=== PATIENT | male | born 1970 | race Caucasian/White ===

== ENCOUNTER 2024-10-05 23:50 | Inpatient (IN) | payer BC, SELFPAY ==
[2024-10-05] VITALS (7 sets, daily range): BP systolic 114–148; BP diastolic 60–93; BMI 27.8
[2024-10-05 21:11] LABS: Hematocrit 48.2 % (39.0-52.0); Hemoglobin 15.2 g/dL (13.0-18.0); Mean Corp Hgb Conc. 31.5 g/dL (33.0-37.0); Mean Corpuscular Volume 97.8 fL (80.0-94.0); Nucleated Red Blood Cells % 0 % (-); Platelet Count 303 10^3/uL (130-400); Red Cell Dist. Width 11.7 % (11.5-14.5)
[2024-10-05 21:42] LABS: AST (SGOT) 32 U/L (17-59); Albumin 5.7 g/dl (3.5-5.0); Alkaline Phosphatase 118 U/L (38-126); Blood Urea Nitrogen 12 mg/dl (9-20); Calcium 9.8 mg/dl (8.4-10.2); Carbon Dioxide 9 mmol/L (22-30); Chloride 103 mmol/L (98-107); Estimated Creatinine Clearance 62 ml/min; Glucose 146 mg/dl (70-99); Potassium 4.3 mmol/L (3.5-5.1); Sodium 144 mmol/L (135-145); Total Protein 9.2 g/dl (6.3-8.2); eGFR > 60.00
[2024-10-05 21:54] LABS: ALT (SGPT) 38 U/L (0-50)
--- NOTE | 2024-10-05 22:20 | ED.GENMED ---
Addendum entered and electronically signed by Jose Moffett DO 10/05/24 23:09:
Patient had repeat seizure while awaiting a ride. Versed given. CT head no acute findings. CT cervical spine no acute finding, but await vision read. Admit patient to hospitalist for further monitoring.
Original Note:
History of Present Illness
General
Chief Complaint: Seizure
Source: patient and family
Exam Limitations: none
Time Seen by Provider: 10/05/24 21:43
Nursing documentation reviewed up to this point in time: agreed with
History of Present Illness
History of Present Illness:
Note:
CHIEF COMPLAINT(S)
[place] lightheaded and potentially experienced a breakthrough seizure.
HISTORY OF PRESENT ILLNESS
The patient is a 54-year-old male with a history of seizures, followed by a neurologist located in [place], [place]. The patient reported feeling lightheaded while traveling from the airport on a train after returning from [place],
where he was accompanying his daughter for school. During the train journey to [place], the patient began to feel 'it coming on' and subsequently missed his stop, potentially due to an altered level of consciousness or falling asleep. The
patient reported no pain but acknowledged having bitten his tongue, though it was not severe.
The patient denies missing any doses of his anti-seizure medication, levetiracetam, during this trip. There is no reported seizure activity for an unspecified duration prior to this incident. However, the patient believes that the travel or change
in routine may have contributed to this episode. The patient was aware of his location after the incident and expressed no current distress or additional symptoms. He was advised to follow up with his neurologist for further evaluation and
management.
PHYSICAL EXAM
General: Alert, no acute distress.
Skin: Warm, dry.
Head: Normocephalic, atraumatic.
Neck: Supple, trachea midline.
Eyes, Ears, Nose, Mouth and Throat: Oral mucosa moist, tongue bitten but not severely.
Cardiovascular: Normal peripheral perfusion, No edema.
Respiratory: Respirations are non-labored.
Gastrointestinal: Abdomen nondistended.
Back: Normal range of motion, Normal alignment.
Musculoskeletal: Normal range of motion, normal strength.
Neurological: Alert and oriented to person, place, time, and situation, No focal neurological deficit observed.
Psychiatric: Cooperative, appropriate mood & affect.
PLAN
The patient will be kept on monitors during the remainder of his stay in the emergency department. He is encouraged to contact a family member or friend to arrange for transportation home. He is advised to follow up with his neurologist to address
this potential breakthrough seizure and discuss any necessary adjustments to his medication regimen or lifestyle to prevent future episodes.
DIFFERENTIAL DIAGNOSIS
The Differential Diagnosis includes, in no particular order and is not limited to:
1. Breakthrough seizure
2. Syncope
3. Hypoglycemia
4. Medication non-compliance or interaction
5. Sleep deprivation
6. Electrolyte imbalance
7. Infection or fever
8. Acute stress response
9. Cardiovascular event
10. Neurological disorder recurrence or progression
CARE-UPDATE
10/05/24 - 22:24
Patient experienced a generalized seizure but showed no signs of head trauma. He has a small tongue laceration that does not require repair or suturing. Notified DMV and completed the necessary forms regarding driving restrictions. The patient has
mild acidosis resulting from the seizure but is tolerating oral fluids well. He continues to follow up with his neurologist.
EKG
My independent EKG interpretation is:
- Rhythm: Normal sinus rhythm
- Notable Abnormality: T-wave abnormality
- Additional Finding: Signs of ischemia
- QRS Duration: Normal
Disposition:
SUMMARY OF ENCOUNTER
The patient, a 54-year-old male with a known history of seizures, was evaluated in the emergency department after experiencing lightheadedness during a train journey, raising concern for a breakthrough seizure. The patient reported no pain but did
have a minor tongue bite. He was traveling from [place] and feared that the change in routine might have contributed to the episode. The physical examination revealed no acute signs of distress, with no observed focal neurological deficits.
The patient tolerated oral fluids well, and the minor tongue laceration did not require suturing. Based on the examination and EKG findings, which showed normal sinus rhythm with T-wave abnormality and signs of ischemia, the patient was encouraged
to follow up with his neurologist for potential changes to his current management plan with levetiracetam.
DISPOSITION
Discharge.
ASSESSMENT
The primary concern in this visit is the recurrence of seizures, potentially a breakthrough seizure due to changes in routine or stress factors related to travel.
PLAN
The patient will be kept on monitors for the remainder of his emergency department stay and encouraged to arrange transportation home with a family member or friend. He is instructed to have a follow-up appointment with his neurologist to address
this possible breakthrough seizure and discuss any necessary adjustments in medication or lifestyle to prevent future episodes.
INDEPENDENT REVIEW OF LABS AND INTERPRETATION OF TESTS
My independent EKG interpretation: Rhythm: Normal sinus rhythm; Notable Abnormality: T-wave abnormality; Additional Finding: Signs of ischemia; QRS Duration: Normal.
PATIENT EDUCATION AND COUNSELING
The patient was counseled on the importance of adherence to his medication regimen and the potential triggers for seizures, including stress and changes in routine. He was advised to ensure regular follow-ups with his neurologist to reassess and
adjust his treatment plan as needed.
FOLLOW-UP INSTRUCTIONS
Please contact your neurologist to schedule a follow-up visit immediately.
MEDICATION RECONCILIATION
The patient is currently on levetiracetam for seizure management. No new medications were prescribed or administered during the visit.
MEDICAL DECISION MAKING
- Number and Complexity of Problems Addressed: Chronic conditions affecting care include seizures. Differential diagnosis considered includes breakthrough seizure, syncope, hypoglycemia, medication non-compliance or interaction, sleep deprivation,
electrolyte imbalance, infection or fever, acute stress response, cardiovascular event, and neurological disorder recurrence or progression.
- Data:
Category 1: Lab tests and EKG reviewed.
Category 2: None.
Category 3: None.
- Risk: Prescription medication management was not changed during the visit; however, potential recommendations for adjustment in therapy will be discussed with the neurologist.
DIAGNOSIS
- Breakthrough seizure, ICD-10 Code: G40.909
Please note that the patients full medical history and current medication regimen should be reviewed with the neurologist for comprehensive management moving forward.
Phy Exam
Physical Exam
Physical Exam:
.
Course
Orders/Labs/Results
Orders:
Orders
10/05/24 20:59
Electrocardiogram (*1) Urgent
Reason for Study: Tachycardia
EKG- Treatment ONCE
10/05/24 21:01
Complete Blood Count/With Diff Urgent
Comprehensive Metabolic Panel Urgent
Lamictal [Lamotrigine (Lamictal)] [S] Urgent
Abnormal Lab Results
10/05/24
21:01
MCV 97.8 H fL
(80.0-94.0)
MCHC 31.5 L g/dL
(33.0-37.0)
Abs Immat Gran (auto) 0.1 H 10^3/uL
(0-0.05)
Absolute Lymphs (auto) 3.5 H 10^3/uL
(1.2-3.4)
Immature Gran % 1.0 H %
(0-0.5)
Carbon Dioxide 9 L* mmol/L
(22-30)
Creatinine 1.4 H mg/dL
(0.7-1.3)
Glucose 146 H mg/dl
(70-99)
Total Protein 9.2 H g/dl
(6.3-8.2)
Albumin 5.7 H g/dl
(3.5-5.0)
10/05/24 21:01
10/05/24 21:01
Vital Signs
Initial and Last Documented VS:
Initial Vital Signs
Temp Pulse Resp BP Pulse Ox
98.2 F 100 12 148/86 97
10/05/24 20:00 10/05/24 20:00 10/05/24 20:00 10/05/24 20:00 10/05/24 20:00
Last Documented Vital Signs
Temp Pulse Resp BP Pulse Ox
98.2 F 84 19 146/93 100
10/05/24 20:00 10/05/24 21:45 10/05/24 21:15 10/05/24 21:00 10/05/24 21:45
*Pulse Oximetry
SaO2: 100
Oxygen Mode of Delivery: Room air
Patient hypoxic: no
*Critical Care Note
Total Time (30-74mins, 75-104mins- exclusive of procedures): Not Applicable
ED Attending Note
-
Portions of this chart may have been created with voice recognition software.� Occasional wrong word or��sound alike� substitutions may have occurred due to the inherent limitations of voice recognition software.
Discharge Plan
Departure
Patient Disposition: Home (Routine Discharge)
Date of Disposition: 10/05/24
Time of Disposition: 22:27
Patient with high blood pressure during this ER visit?: Yes
Condition: Good
Discharge Problem:
Breakthrough seizure
Instructions: Seizures, Adult (DC), BLOOD PRESSURE
Referrals:
NONE,* [Family Provider, Internal Medicine]
Activity Restrictions/Additional Instructions:
Follow-up with your neurologist do not drive until cleared by neurology.
Interventions
Interventions:
*Risk Screen - Suicide Last Done: 10/05/24 20:00
*General Assessment Last Done: 10/05/24 20:00
*Neglect/Abuse Screening Last Done: 10/05/24 20:00
*ED- Fall Risk Assessment Last Done: 10/05/24 20:00
*ED COVID-19 Vaccine History Last Done: 10/05/24 20:00
ED- Cardiac Assessment Last Done: 10/05/24 20:00
ED- Neurological Assessment Last Done: 10/05/24 20:00
ED- Pulmonary Assessment Last Done: 10/05/24 20:00
Discharge Date and Time
Print Language: PASHTO
[2024-10-05] MEDS: VERSED 2 MG IV (22:46)
--- NOTE | 2024-10-05 23:10 | PTCARENOTE ---
Patient was cleared medically and discharged by provider. This RN removed IV and patient was waiting for a ride home. This RN was giving report to receiving RN when we heard a loud noise and ran into the room to find the patient on the ground next
to the stretcher seizing. The other RN quickly notified provider and other RNs to come assist. A [address] in RAC and medication was administered (see MAR). Patient was transported to CT scan by this RN, another RN, and provider.
[2024-10-05] MEDS: KEPPRA 1000 MG IV (23:25)
--- NOTE | 2024-10-05 23:27 | HPS.HSE ---
Family Physician
-
Family Physician: * NONE
Chief Complaint
-
Seizure
History of Present Illness
54-year-old male who was on the train today coming back from [place] while getting off the train had a witnessed seizure. He was brought to ER for evaluation. Patient typically lives in [facility]. He reports he has had seizures since his 20s unsure of the cause. He reports he is compliant with his Lamictal. He was seen in the ER and during discharge he states he had prodrome of lightheadedness that he gets
before having a seizure he had lightheadedness then was found on the floor in the room. He denies cervical thoracic or lumbar pain there is no active head injury he denies headache, fever, chills, chest pain, palpitations, cough, shortness of
breath, abdominal pain, nausea, vomiting, diarrhea, urinary symptoms. During his active seizure he was given Versed intravenous. He had CT head and cervical spine that was negative. Patient has past medical history of seizure disorder since age 22
Medical History
Past Medical History
Past Medical History: Reports Other
Additional Past Medical History:
Seizures since age 22
Past Surgical History: Reports None
Social History
Tobacco: Non-smoker
Alcohol: Occasional (Drinks alcohol once a week)
Drug: Marijuana (1-2 times a week smokes)
Personal: Other (Girlfriend Jennifer)
Living: With Family (Girlfriend Jennifer)
Employment: Employed
Family History
Family History: Other (No family history of seizures, brain injuries, strokes)
Allergies / Home Medications
Allergies reflects when Allergies were last updated in [facility].
Home Medications with original date entered in [facility]
Allergy/Medication List:
Allergies
Allergy/AdvReac Type Severity Reaction Status Date / Time
No Known Allergies Allergy Verified 10/05/24 20:18
Home Medications
Lamictal 200 mg PO TID 10/05/24
Review of Systems
-
History Source: Patient
A 12 point ROS was completed and negative except as noted: Yes
Constitutional: Denies Fever or Chills
EENT: Denies Sore Throat or Runny Nose
Respiratory: Denies Cough or Trouble Breathing
Cardiac: Denies Chest Pain, Palpitations or Syncope
Abdomen/GI: Denies Abdominal Pain, Nausea, Vomiting, Diarrhea, Constipated or Bloody Stools
: Denies Dysuria, Frequency, Flank Pain, Incontinence, Difficulty Voiding, Urgency or Bleeding
Musculoskeletal: Denies Joint Pain or Edema
Skin: Denies Itching or Rash
Neurological: Denies Dizzy, Headache or Weakness
Hematologic/Lymphatic: Reports No Symptoms
Psych: Reports Calm
Physical Exam
Vital Signs
Vital Signs
Temp Pulse Resp BP Pulse Ox
98.2 F 84 19 146/93 100
10/05/24 20:00 10/05/24 21:45 10/05/24 21:15 10/05/24 21:00 10/05/24 22:21
Physical Exam
General: Conversant; No Fever, Chills or Sweats
HEENT: NormoCephalic, Anicteric, Moist mucous membranes, Atraumatic, PERRLA, Taylor Conjunctivae, No Ptosis and Other (Negative cervical thoracic or lumbar tenderness)
Respiratory: Clear; No Wheezes, Rales or Rhonchi
Cardiac: S1/S2 and Regular Rhythm; No Murmur, Rub, Gallop or Peripheral Edema
Breast: Deferred by me
GI: Soft, Non Tender, Non Distended, Normal Bowel Sounds and No Hepatosplenomegaly
Rectal: Deferred by Provider
Genito-urinary: Deferred by me
Musculoskeletal: No Clubbing, No Cyanosis and No Edema
Skin: Warm; No Dry, Rash or Jaundice
Neuro: Cranial Nerves Intact, No Sensory Deficits and Other (Drowsy but oriented x 3 secondary to Versed); No Slurred Speech, Facial Droop or Tremors
Psych: Calm
Laboratory Results
-
10/05/24 21:01
10/05/24 21:01
Laboratory Results
Total Bilirubin 0.6 mg/dl (0.2-1.3) 10/05/24 21:01
AST 32 U/L (17-59) 10/05/24 21:01
ALT 38 U/L (0-50) 10/05/24 21:01
Alkaline Phosphatase 118 U/L (38-126) 10/05/24 21:01
Impression/Plan
-
Impression/plan:
Admit to telemetry
#Recurrent seizures
#History of seizures since age 22
- Check CT head
- IV Versed given in ER to break seizure
- IV Keppra 1000 mg loading
- Keppra 500 twice daily (patient did have Keppra filled March 2024 unclear why not still on)
-Resume Lamictal 1 mg 3 times daily
- Consult neurology
-Seizure precautions
-Patient follows with Dr. Arroyo in [facility]
-Neurochecks every 4 hours
- Check UDS
EKG NSR 85 bpm, QTc 404 MS
#Mechanical fall no injury
- Check CT head, CT spine
DVT prophylaxis
SCDs
Full code
--- NOTE | 2024-10-05 23:27 | W.PN.UPDATE ---
Update Note
Progress Note Update
Patient seen in conjunction with MARIFER. I agree with the findings and physical. Concur with assessment and plan unless stated otherwise.
Briefly, this is a 54-year-old with past medical history of seizure disorder on lamotrigine since he was in his 20s. who presents to the emergency department following a presumed seizure or event that he witnessed seizure event in the ED.
Patient reported that he has been compliant with his AED during his recent trip to [place]. During his travel from the airport on the train he began to feel a sensation of a seizure coming. He admits to missing stop for unknown reasons and
felt he may have bitten his tongue. He was brought to the emergency department by EMS. Initial evaluation in the emergency department was unremarkable and patient was preparing to leave the ED when he had a witnessed seizure episode lasting for
about 1 minute and then a fall.
In the emergency department he was afebrile, blood pressure was 140/90 with a pulse of 84 and he was satting 100% on room air. CBC was unremarkable, electrolytes notable for a bicarb of 9 but otherwise unremarkable with a BUN of 12 and creatinine
of 1.4 with a glucose of 146.
ECG with normal sinus rhythm at a rate of 83.
CT head shows no acute intracranial hemorrhage, CT C-spine without acute fracture or dislocation or subluxation. Final read pending
History of seizures, does not recall recent episode and reports history of compliance with his lamictal.
Assessment and plan
Likely episode of breakthrough seizure possibly due to reduced seizure threshold in the setting of dehydration. Recurrent episode, non-status.
No obvious infection. No obvious medications interacting with his Keppra. Unknown last seizure episode.
-Admit to telemetry
-Status post Versed, as needed Versed 2mg
-Giving Keppra 1 g IV, continue 1 g IV every 12
-Continue lamotrigine oral when tolerating po
- likely may need a second agent such as lacosamide with his lamotrigine
-Check drug screen
-IV fluids
-Neurology consult
[2024-10-06] VITALS (16 sets, daily range): BP systolic 103–135; BP diastolic 59–96
[2024-10-06] MEDS: LAMICTAL 200 MG PO ×2 (00:31→07:42)
[2024-10-06] MEDS: TYLENOL 650 MG PO ×2 (02:39→07:42)
[2024-10-06] MEDS: KEPPRA 500 MG PO (07:42)
[2024-10-06 07:49] LABS: Hematocrit 38.7 % (39.0-52.0); Hemoglobin 13.2 g/dL (13.0-18.0); Mean Corp Hgb Conc. 34.1 g/dL (33.0-37.0); Mean Corpuscular Volume 90.0 fL (80.0-94.0); Nucleated Red Blood Cells % 0 % (-); Platelet Count 228 10^3/uL (130-400); Red Cell Dist. Width 11.9 % (11.5-14.5)
[2024-10-06 08:24] LABS: ALT (SGPT) 24 U/L (0-50); AST (SGOT) 23 U/L (17-59); Albumin 4.2 g/dl (3.5-5.0); Alkaline Phosphatase 92 U/L (38-126); Blood Urea Nitrogen 10 mg/dl (9-20); Calcium 8.9 mg/dl (8.4-10.2); Carbon Dioxide 24 mmol/L (22-30); Chloride 108 mmol/L (98-107); Estimated Creatinine Clearance 79 ml/min; Glucose 100 mg/dl (70-99); Magnesium 2.6 mg/dl (1.6-2.3); Potassium 4.2 mmol/L (3.5-5.1); Sodium 138 mmol/L (135-145); Total Protein 6.9 g/dl (6.3-8.2); eGFR > 60.00
--- NOTE | 2024-10-06 09:18 | CON.NEURO4 ---
Addendum entered and electronically signed by Zach Shrestha MD 10/06/24 11:33:
Studies reviewed.
I have personally examined the patient. I reviewed and agree with the PASSENGER REPRESENTATIVE's Note.
My addenda:
Awake, alert, interactive. No acute distress.
Speech intact.
Follows 2-step requests w/o difficulty. No tremor.
Extra-ocular movements grossly intact.
Facial movements full and symmetric. Hearing intact to normal conversational volume.
Normal UE movements bilaterally.
Neck: full ROM.
Chest: no dyspnea
Heart: no JVD
Ext: (-) Clubbing, (-) Cyanosis, (-) Edema
IMPRESSIONS/RECOMMENDATIONS:
Abrupt onset of change in mental status
Presumed to be secondary to recurrent seizures. Differential diagnosis includes somatization disorder, psychogenic nonepileptic events
Would not at this time repeat testing to ascertain if the patient is experiencing seizures
Would maintain the patient on current dosing of lamotrigine 200 mg 3 times a day
If the patient has a recurrent event when discharged, patient should utilize midazolam nasal spray 1 spray in a nostril as needed, may repeat after 15 minutes
Lamotrigine level pending
D/W patient
All questions answered.
Will continue to follow patient as needed.
Original Note:
Consultation - Neurology 4
-
CONSULTING PHYSICIAN: Zach Shrestha MD
REFERRING PHYSICIAN: Hospitalists/Dr. Fischer
DICTATED BY: MARIFER Cuevas
DATE/TIME OF REQUEST: 10/06/24
DATE/TIME OF CONSULTATION: 10/06/24
Reason for Consultation: Seizure
History of Present Illness:
This is a 54-year-old male who has presented to the hospital with report of seizure. He reports that his first seizure was about 20 years ago, he was working in [place] and only sleeping about 3-4 hours a night. He reports that initially he was
having seizure-like episodes frequently, currently they are about once every 2 months. He is followed as an outpatient by Neurology Dr. Jose Grimaldo in [facility]. He cannot recall what antiseizure medication he was initially on but he
has been taking lamotrigine 200mg TID for years. He reports having about an hour-long aura of feeling light-headed/fatigued prior to having a seizure. He often can take a nap when he feels this way and reports this stops the seizure from happening.
He reports that he is intermittently incontinent of bladder or bowel and can bite his tongue with these events. He reports that he typically loses consciousness, has whole body shaking, and becomes aware again after about 15 minutes. Poor sleep is
his biggest trigger for having a seizure.
Patient reports that he just traveled to [place]. He flew home yesterday (10/05/24) and reports that upon exiting the plane he began to feel his usual aura. He sat down and took a 15 minute nap due to knowing he was sleep deprived and trying
to mike off a seizure. He awoke and proceeded to get on a train back to [place]. He reports that he missed his stop and then felt that he had bitten his tongue and passengers reported he had a seizure, prompting them to call 911 and subsequently
he was brought to the ER. Upon being discharged from the ER, he had a witnessed seizures walking out of the building lasting one minute and he fell to the ground, prompting him to stay for further evaluation. Currently, he reports feeling back to
his baseline except for feeling body soreness. He denies any headache, dizziness, vision changes, speech/swallow difficulty, numbness, and weakness. He has not missed any doses of his lamotrigine.
Past Medical History: Seizures
Surgical History: Denies
Family History: Reviewed and noncontributory.
Social History: Occasional alcohol and marijuana.
Allergies: No known allergies.
Home Medications: Lamotrigine 200mg TID.
Review of Symptoms:
Patient denies any fever, headache, chest pain, shortness of breath, GI or symptoms.
�Per the HPI.�All systems are reviewed negative except above.
Physical Exam:
The patient is afebrile, abdomen is nondistended, breathing is unlabored, skin is warm and dry, no edema.
Neurologic Examination:
The patient is awake, alert and oriented x 3. He is able to follow commands and answer questions appropriately. There is no aphasia or dysarthria. On cranial nerve assessment, pupils are 3 mm bilateral, round and reactive to light and
accommodation. Visual jaime are full. Extraocular movements are intact. Facial sensations are intact and bilaterally symmetrical, there is no facial asymmetry. Hearing is intact bilaterally to normal conversation volume. Tongue palate and uvula
are midline. Sternocleidomastoid strengths are full bilaterally. Motor strengths are 5/5 bilateral upper and lower extremities on medical research [place] scale. There is no drift or involuntary movement noted. Deep tendon reflexes are 2+ bilateral
upper and lower extremities and Babinski is absent bilaterally. Coordination is intact by finger to nose bilaterally.
Lab Results: See below.
Neuro Imaging:
1. CT Head 10/05/24: No intracranial abnormality appreciated.
2. CT Cervical spine 10/05/24: No osseous injury appreciated. Mild degenerative change as detailed above.
Differentials for the patient's presentation include:
1. Breakthrough seizure with reported history of epilepsy.
Patient has the following risk factors for their symptoms: Poor sleep, flight
Recommendations:
-Continue home lamotrigine 200mg TID. This is unusual dosing. Instructed patient to contact his Neurologist now and discuss antiseizure medication adjustment.
-Do not see a role for further neurological imaging.
-Instructed him to ask his Neurologist about Nayzilam for seizure rescue as an outpatient.
Discussed patient care with: Dr. Shrestha, the patient
Vital Signs and Labs
-
Vital Signs and Labs:
Vital Signs
Temp Pulse Resp BP Pulse Ox
98.1 F 77 15 135/96 96
10/06/24 07:00 10/06/24 09:00 10/06/24 09:00 10/06/24 09:00 10/06/24 09:00
Lab Results
10/06/24 07:26
10/06/24 07:26
Sodium 138 mmol/L (135-145) 10/06/24 07:26
Potassium 4.2 mmol/L (3.5-5.1) 10/06/24 07:26
BUN 10 mg/dl (9-20) 10/06/24 07:26
Glucose 100 mg/dl (70-99) H 10/06/24 07:26
Calcium 8.9 mg/dl (8.4-10.2) 10/06/24 07:26
Ur Buprenorphine Negative (Negative) 10/06/24 04:38
Medications
-
Active Medications
Generic Name Dose Route Start Last Admin
Trade Name Freq PRN Reason Stop Dose Admin
Acetaminophen 650 mg 10/06/24 02:13 10/06/24 07:42
Acetaminophen 325 Mg Tablet PO 11/03/24 02:12 650 mg
Q4HPRN PRN Administration
mild pain/PETERSEN/temp> 100.4F
Lamotrigine 200 mg 10/06/24 08:00 10/06/24 07:42
Lamotrigine 100 Mg Tablet PO 11/03/24 07:59 200 mg
TID HARRIETT Administration
Prochlorperazine Maleate 10 mg 10/06/24 09:16
Prochlorperazine 10 Mg Tablet PO 11/03/24 09:15
Q6HPRN PRN
headache
Sodium Chloride 0 flush 10/06/24 03:00
Sodium Chloride 0.9% (Flush) Syringe IV 11/03/24 02:59
PER PROTOCOL HARRIETT
Home Medications
�Medication �Instructions �Recorded
lamotrigine 200 mg tablet 200 mg PO TID 10/05/24
(Lamictal)
midazolam 5 mg/spray (0.1 mL) 1 spray intranasal ONCE PRN 10/06/24
nasal spray (Nayzilam) seizure #2 ea
[2024-10-06 10:24] LABS: C-Reactive Protein 8.10 mg/L (0.0-10.00)
--- NOTE | 2024-10-06 10:55 | W.PN.HOSP.TC ---
Today's Communication/Plan
-
Discharge
Assessment / Plan
Assessment / Plan
Gen-AAOx3, NAD
HEENT-NC, AT, anicteric, clear oral mm
Neck-supple
CV-reg, no M, +S1/S2
Lungs-clear B/L
Abd-soft, NT, ND
Ext-no edema
Musculoskeletal-no cyanosis, clubbing
Skin-warm and dry
Neuro-grossly non-focal
Psych-calm, cooperative
Epilepsy -here with breakthrough seizures. CT head negative.
Denies noncompliance with meds at home. Recommend abstaining from further marijuana use, possible increased seizure risk with THC. Discussed with patient.
Neurology does not recommend any medication changes. They recommend adding nasal midazolam as needed seizures.
Marijuana use disorder -recommend abstinence. Discussed with patient.
Dispo -neurology okay with discharge today. Recommend outpatient follow-up. The patient does not drive.
Anticipated Discharge: Today
Subjective/Interval History
-
Date of Service: October 06, 2024
Patient seen and examined. No complaints.
Objective Data
-
Labs:
Laboratory Results
10/06/24
07:26
WBC 7.0
Hgb 13.2
Hct 38.7 L
Plt Count 228 D
Sodium 138
Potassium 4.2
Chloride 108 H
Carbon Dioxide 24
BUN 10
Creatinine 1.1
Glucose 100 H
Calcium 8.9
Total Bilirubin 0.6
AST 23
ALT 24
Alkaline Phosphatase 92
Vital Signs:
Vital Signs
Temp Pulse Resp BP Pulse Ox
98.1 F 77 15 135/96 96
10/06/24 07:00 10/06/24 09:00 10/06/24 09:00 10/06/24 09:00 10/06/24 09:00
Review of Systems
-
History Source: Patient
All other systems: Reviewed and negative
--- NOTE | 2024-10-06 11:05 | W.DS.TRANS ---
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
-
Discharge Instructions:
Discharge Diagnosis/Procedures Breakthrough seizure
Diet Regular
Activity As tolerated
Driving Restrictions No driving
Bathing Restrictions None
Instructions:
Stand-Alone Forms:
Changes to Home Medications: No
Discharge Medications:
DC Medications w/original date entered in [facility] [employer]
lamotrigine 200 mg tablet (Lamictal) 200 mg PO TID 10/05/24
midazolam 5 mg/spray (0.1 mL) nasal spray (Nayzilam) 1 spray intranasal ONCE PRN seizure #2 ea 10/06/24
Home Medication Changes
Pending Results: No
[2024-10-06 11:30] LABS: Folate 11.6 ng/ml (2.76-20); Vitamin B12 222 pg/ml (239-931)
--- NOTE | 2024-10-06 13:01 | PTCARENOTE ---
Rn service center coordinator- Patient cleared for d/c, instructions provided by Usha emergency RN. Called to patient and instructed to take next dose of lamictal at 1600.
== END 2024-10-06 13:07 | disposition home or self-care (01) | DRG 101 ==
LOC: ED 23:50
PROVIDERS: Clinical Nurse Specialist Family Health; Registered Nurse; ADMITTING PHYSICIAN Internal Medicine; ATTENDING PHYSICIAN Hospitalist; CONSULT PHYSICIAN Psychiatry & Neurology Neurology; EMERGENCY PHYSICIAN Emergency Medicine
DX: G40.909 Epilepsy, unspecified, not intractable, without status epilepticus (principal); F12.10 Cannabis abuse, uncomplicated
CPT/HCPCS: 70450; 72125; 80053; 80175; 80306; 82607; 82746; 83735; 84443; 85025; 85652; 86140; 93005